=== PATIENT | female | born 1985 | race Asian ===

== ENCOUNTER 2017-11-14 06:38 | Inpatient (IN) | payer OTHER ==
[2017-11-14] MEDS ORDERED: LACTATED RINGER'S 1,000 ML IV (07:01)
[2017-11-14] MEDS ORDERED: AMPICILLIN 2 GM/NS (PMX) 100 ML (07:12)
[2017-11-14] MEDS: AMPICILLIN 2 GM/NS (PMX) 100 ML IV (07:15)
[2017-11-14] MEDS: LACTATED RINGER'S 1,000 ML IV ×2 (07:28→15:01)
[2017-11-14] MEDS ORDERED: OXYTOCIN 30 UNITS/LR 500 ML IV ×2 (07:30→10:00)
[2017-11-14] MEDS ORDERED: CARBOPROST 250 MCG INJ IM ×2 (07:30→10:00)
[2017-11-14] MEDS ORDERED: MISOPROSTOL 200 MCG TAB PR ×2 (07:30→10:00)
[2017-11-14] MEDS ORDERED: LIDOCAINE 1% (MPF) 30 ML INJ INJ (07:30)
[2017-11-14] MEDS ORDERED: IBUPROFEN 600 MG TAB PO (07:30)
[2017-11-14] MEDS ORDERED: BUTORPHANOL 2 MG INJ IV (07:30)
[2017-11-14 07:32] LABS: ADD MAN DIFF? NO
[2017-11-14 07:35] LABS: BASOPHIL # 0.1 10^3/ul (0.0-0.1); BASOPHILS % 0.5 % (0.0-2.0); EOSINOPHILS # 0.1 10^3/ul (0.0-0.5); EOSINOPHILS % 1.2 % (0.0-7.0); HEMOGLOBIN 15.4 g/dl (12.0-16.0); LYMPHOCYTES # 4.4 10^3/ul (0.8-2.9); LYMPHOCYTES % 38.3 % (15.0-51.0); MEAN CORPUSCULAR HEMOGLOBIN 31.9 pg (29.0-33.0); MEAN CORPUSCULAR HGB CONC 34.2 g/dl (32.0-37.0); MEAN CORPUSCULAR VOLUME 93.2 fl (82.0-101.0); MEAN PLATELET VOLUME 11.7 fl (7.4-10.4); MONOCYTE # 0.7 10^3/ul (0.3-0.9); MONOCYTES % 6.5 % (0.0-11.0); NEUTROPHILS % 52.6 % (39.0-77.0); PLATELET COUNT 143 10^3/UL (140-415); RED BLOOD COUNT 4.83 10^6/ul (4.20-5.40); RED CELL DISTRIBUTION WIDTH 12.4 % (11.5-14.5)
[2017-11-14 07:35] LABS: WHITE BLOOD COUNT 11.5 10^3/ul (4.8-10.8)
[2017-11-14] MEDS ORDERED: FENTAnyl 2MCG/ML-ROPIV 0.2% 0 ML (07:47)
[2017-11-14 07:54] LABS: INR 0.94; PROTIME 12.7 Sec (11.9-14.9)
[2017-11-14 07:55] LABS: PARTIAL THROMBOPLASTIN TIME 34.9 Sec (25.0-35.0)
[2017-11-14 07:58] LABS: ALANINE AMINOTRANSFERASE 14 IU/L (13-69); ALBUMIN 3.5 g/dl (3.3-4.9); ALBUMIN/GLOBULIN RATIO 1.09; ALKALINE PHOSPHATASE 169 IU/L (42-121); ANION GAP 13 (8-16); ASPARTATE AMINO TRANSFERASE 27 IU/L (15-46); BILIRUBIN,INDIRECT 0.1 mg/dl (0-1.1); BILIRUBIN,TOTAL 0.1 mg/dl (0.2-1.3); BLOOD UREA NITROGEN 18 mg/dl (7-20); CALCIUM 9.2 mg/dl (8.4-10.2); CARBON DIOXIDE 19 mmol/L (21-31); CHLORIDE 110 mmol/L (97-110); CREATININE 0.81 mg/dl (0.44-1.00); GLUCOSE 82 mg/dl (70-220); POTASSIUM 3.9 mmol/L (3.5-5.1); SODIUM 138 mmol/L (135-144); TOTAL PROTEIN 6.7 g/dl (6.1-8.1)
[2017-11-14] MEDS: OXYTOCIN 30 UNITS/LR 500 ML IV ×3 (08:00→09:47)
[2017-11-14] MEDS: METHYLERGONOVINE 0.2 MG INJ IM (08:02)
[2017-11-14 08:32] LABS: HEPATITIS B SURFACE ANTIGEN NEGATIVE (NEGATIVE)
[2017-11-14 08:44] LABS: HIV 1&2 ANTIBODY NEGATIVE (NEGATIVE)
[2017-11-14] MEDS ORDERED: ACETAMINOPHEN 325 MG TAB PO (10:00)
[2017-11-14] MEDS ORDERED: DIBUCAINE 1% 30 GM OINT PR (10:00)
[2017-11-14] MEDS ORDERED: SENNA/DOCUSATE NA (8.6MG/50MG) TAB PO (10:00)
[2017-11-14] MEDS ORDERED: WITCH HAZEL/GLYCERIN PAD PR (10:00)
[2017-11-14] MEDS ORDERED: METHYLERGONOVINE 0.2 MG INJ IM (10:00)
[2017-11-14] MEDS ORDERED: BENZOCAINE 20% 56 ML SPRAY TOP (10:00)
[2017-11-14] MEDS ORDERED: NACL 0.9% 3 ML SYG IV (10:00)
[2017-11-14] MEDS ORDERED: AMPICILLIN 1 GM/NS (PMX) 50 ML IV (11:30)
[2017-11-14] MEDS: IBUPROFEN 600 MG TAB PO ×3 (12:03→23:57)
[2017-11-14] MEDS: LANOLIN 7 GM TUBE TOP (12:04)
[2017-11-14 22:13] LABS: RAPID PLASMA REAGIN NONREACTIVE (NR)
[2017-11-15] MEDS: IBUPROFEN 600 MG TAB PO ×4 (06:38→23:22)
[2017-11-15 10:03] LABS: ADD MAN DIFF? NO
[2017-11-15 10:08] LABS: BASOPHIL # 0.1 10^3/ul (0.0-0.1); BASOPHILS % 0.6 % (0.0-2.0); EOSINOPHILS # 0.1 10^3/ul (0.0-0.5); HEMOGLOBIN 13.3 g/dl (12.0-16.0); LYMPHOCYTES # 3.1 10^3/ul (0.8-2.9); LYMPHOCYTES % 26.1 % (15.0-51.0); MEAN CORPUSCULAR HEMOGLOBIN 31.7 pg (29.0-33.0); MEAN CORPUSCULAR HGB CONC 33.3 g/dl (32.0-37.0); MEAN CORPUSCULAR VOLUME 95.5 fl (82.0-101.0); MEAN PLATELET VOLUME 11.5 fl (7.4-10.4); MONOCYTE # 0.5 10^3/ul (0.3-0.9); MONOCYTES % 3.9 % (0.0-11.0); NEUTROPHILS % 67.5 % (39.0-77.0); PLATELET COUNT 133 10^3/UL (140-415); RED BLOOD COUNT 4.19 10^6/ul (4.20-5.40); RED CELL DISTRIBUTION WIDTH 12.6 % (11.5-14.5)
[2017-11-15 10:08] LABS: WHITE BLOOD COUNT 11.9 10^3/ul (4.8-10.8)
[2017-11-15 12:23] LABS: RUBELLA ANTIBODY - IGG 2.69 index; RUBELLA ANTIBODY - IGM <20.00 AU/mL
[2017-11-16] MEDS: IBUPROFEN 600 MG TAB PO ×2 (05:18→11:20)
== END 2017-11-16 14:13 | disposition home or self-care (01) | DRG 775 ==
LOC: OBT 06:38 → L-D 06:38 → OBT 07:22 → L-D 06:55 → PP1 09:23
PROVIDERS: Obstetrics & Gynecology
PROC: 10E0XZZ Delivery of Products of Conception, External Approach (ICD-10-PCS; principal; 2017-11-14)
DX: O42.02 Full-term premature rupture of membranes, onset of labor within 24 hours of rupture (principal); O69.81X0 Labor and delivery complicated by cord around neck, without compression, not applicable or unspecified; Z3A.00 Weeks of gestation of pregnancy not specified; Z37.0 Single live birth
CPT/HCPCS: 80053; 85025; 85610; 85730; 86592; 86703; 86762; 86850; 86900; 86901; 87340